=== PATIENT | female | born 1945 | race Caucasian/White ===

== ENCOUNTER 2018-09-16 12:29 | Emergency (ER) | payer OTHER ==
[2018-09-16] MEDS ORDERED: hydrOXYzine HCl 25 MG TAB ONE (13:25)
--- NOTE | 2018-09-16 13:40 | ER ---
Nurse's Notes [facility] Name: Eleanor Osman Age: 73 yrs Sex: Female : 1945 Arrival Date: 09/16/2018 Time: 12:32 Bed 26 Private MD: Diagnosis: Allergic contact dermatitis;Allergic contact dermatitis due to plants, except food Presentation: 09/16 12:37 Presenting complaint: Patient states: Was clearing a fence line a few days ago, wore sg gloves but no long sleeves, reports having a red itchy rash to head face, arms and hands, similar to what happens when she is exposed to poison [place]. Transition of care: patient was not received from another setting of care. Onset of symptoms was September 16, 2018. Risk Assessment: Do you want to hurt yourself or someone else? Patient reports no desire to harm self or others. Initial Sepsis Screen: Does the patient meet any 2 criteria? No. Patient's initial sepsis screen is negative. Does the patient have a suspected source of infection? No. Patient's initial sepsis screen is negative. Care prior to arrival: None. 12:37 Method Of Arrival: Ambulatory sg 12:37 Acuity: BRANDON 4 sg Triage Assessment: 13:45 General: Appears in no apparent distress. Behavior is calm, cooperative. iw Historical: - Allergies: 12:37 Aspirin; sg - PMHx: 12:37 Asthma; sg - PSHx: 12:37 Tonsillectomy; Tubal ligation; Cholecystectomy; sg - Immunization history:: Adult Immunizations up to date. - Social history:: Smoking status: Patient/guardian denies using tobacco. - Ebola Screening: : Patient negative for fever greater than or equal to 101.5 degrees Fahrenheit, and additional compatible Ebola Virus Disease symptoms Patient denies exposure to infectious person Patient denies travel to an Ebola-affected area in the 21 days before illness onset No symptoms or risks identified at this time. Screenin:10 Nutritional screening: No deficits noted. Tuberculosis screening: No symptoms or risk iw factors identified. Fall Risk None identified. 13:18 Abuse screen: Denies threats or abuse. Denies injuries from another. iw Assessment: 13:10 General: Appears in no apparent distress. comfortable, Behavior is calm, cooperative. iw Pain: Denies pain. Neuro: Level of Consciousness is awake, alert, obeys commands, Oriented to person, place, time, situation, Moves all extremities. Cardiovascular: Patient's skin is warm and dry. Respiratory: Respiratory effort is even, unlabored, Respiratory pattern is regular. GI: Abdomen is flat. Derm: Rash noted that is macular, itchy, on right arm. Musculoskeletal: Range of motion: intact in all extremities. Vital Signs: 12:35 Pulse 88; Resp 17; Temp 98.3; Pulse Ox 96% on R/A; Pain 8/10; sg 12:38 BP 257 / 107; sg 13:18 BP 196 / 100; Pulse 74; Resp 16; Pulse Ox 97% on R/A; iw ED Course: 12:32 Patient arrived in ED. as 12:35 Arm band placed on. sg 12:36 Raymond Hood PA is PHCP. [facility] 12:36 David Palma MD is Attending Physician. [facility] 12:42 Triage completed. sg 13:06 Melany Kenney, RN is Primary Nurse. iw 13:10 Patient has correct armband on for positive identification. iw 13:45 No provider procedures requiring assistance completed. Patient did not have IV access iw during this emergency room visit. Administered Medications: 13:17 Drug: Atarax 25 mg Route: PO; iw Outcome: 13:40 Discharge ordered by MD. [facility] 13:45 Discharged to home ambulatory, with family. iw 13:45 Condition: good 13:45 Discharge instructions given to patient, family, Instructed on discharge instructions, follow up and referral plans. medication usage, Demonstrated understanding of instructions, follow-up care, medications, Prescriptions given X 2. 13:46 Patient left the ED. iw Signatures: Mathew James, RN AVA Raymond Hood PA PA jmm Martinez, Amelia as Melany Kenney, AVA ESCALANTE iw Corrections: (The following items were deleted from the chart) 13:20 13:18 BP 194 / 105; iw iw
--- NOTE | 2018-09-16 13:41 | EDPHYS ---
Physician Documentation [facility] Name: Eleanor Osman Age: 73 yrs Sex: Female : 1945 Arrival Date: 09/16/2018 Time: 12:32 Bed 26 Private MD: ED Physician David Palma HPI: 09/16 12:58 This 73 yrs old Female presents to ER via Ambulatory with complaints of Rash jmm - Poison [place]. 12:58 The patient's rash thought to be caused by Dermatitis. Onset: The symptoms/episode jmm began/occurred gradually, 2 week(s) ago. Associated signs and symptoms: Pertinent positives: burning sensation, itching, Pertinent negatives: fever, Pain swelling of lips, swelling of throat, swelling of tongue, vomiting. Historical: - Allergies: 12:37 Aspirin; sg - PMHx: 12:37 Asthma; sg - PSHx: 12:37 Tonsillectomy; Tubal ligation; Cholecystectomy; sg - Immunization history:: Adult Immunizations up to date. - Social history:: Smoking status: Patient/guardian denies using tobacco. - Ebola Screening: : Patient negative for fever greater than or equal to 101.5 degrees Fahrenheit, and additional compatible Ebola Virus Disease symptoms Patient denies exposure to infectious person Patient denies travel to an Ebola-affected area in the 21 days before illness onset No symptoms or risks identified at this time. ROS: 13:37 Constitutional: Negative for fever, chills, and weight loss, Cardiovascular: Negative jmm for chest pain, palpitations, and edema, Respiratory: Negative for shortness of breath, cough, wheezing, and pleuritic chest pain. 13:37 Skin: Positive for rash. 13:37 All other systems are negative. Exam: 13:37 Head/Face: atraumatic. Eyes: EOMI, no conjunctival erythema appreciated Neck: jmm Trachea midline, Supple Chest/axilla: Normal chest wall appearance and motion. Cardiovascular: Regular rate and rhythm. No edema appreciated Respiratory: Normal respirations, no respiratory distress appreciated Abdomen/GI: Non distended, soft Back: Normal ROM 13:37 Neuro: Awake and alert, normal gait Psych: Behavior is normal, Mood is normal, Patient is cooperative and pleasant 13:37 Constitutional: The patient appears in no acute distress, alert, awake. 13:37 Skin: rash consistent with dermatitis to the right arm, forehead. Vital Signs: 12:35 Pulse 88; Resp 17; Temp 98.3; Pulse Ox 96% on R/A; Pain 8/10; sg 12:38 BP 257 / 107; sg 13:18 BP 196 / 100; Pulse 74; Resp 16; Pulse Ox 97% on R/A; MDM: 12:58 Patient medically screened. [facility] 13:37 Data reviewed: vital signs, nurses notes. Counseling: I had a detailed discussion with aurelia the patient and/or guardian regarding: the historical points, exam findings, and any diagnostic results supporting the discharge/admit diagnosis, the need for outpatient follow up, to return to the emergency department if symptoms worsen or persist or if there are any questions or concerns that arise at home. ED course: I discussed with the patient the need for reevaluation to begin treatment for hypertension. Patient was otherwise given return precautions. Patient understood and agrees with the plan of care. . 09/16 13:01 Order name: Vital Signs; Complete Time: 13:20 [facility] Administered Medications: 13:17 Drug: Atarax 25 mg Route: PO; Disposition: 18:11 Co-signature as Attending Physician, David Palma MD. rn Disposition: 09/16/18 13:40 Discharged to Home. Impression: Allergic contact dermatitis, Allergic contact dermatitis due to plants, except food. - Condition is Stable. - Discharge Instructions: Hypertension, Poison [place] Dermatitis. - Prescriptions for Prednisone 20 mg Oral Tablet - take 3 tablet by ORAL route once daily 12 days Please take 3 tabs by mouth for 3 days, then 2 tabs by mouth for 3 days, then 1 tab by mouth daily for 3 days, then 1/2 tab by mouth daily for 3 days.; 20 tablet. Hydroxyzine HCl 25 mg Oral Tablet - take 1 tablet by ORAL route every 6 hours As needed; 30 tablet. - Medication Reconciliation Form, Thank You Letter, Antibiotic Education, Prescription Opioid Use form. - Follow up: Private Physician; When: 2 - 3 days; Reason: Recheck today's complaints, Continuance of care, Re-evaluation by your physician. Signatures: Mathew James RN RN Raymond Hood PA PA Melany Woody RN RN David Palma MD MD english language learner tutor: (The following items were deleted from the chart) 13:46 13:40 09/16/2018 13:40 Discharged to Home. Impression: Allergic contact dermatitis; iw Allergic contact dermatitis due to plants, except food. Condition is Stable. Forms are Medication Reconciliation Form, Thank You Letter, Antibiotic Education, Prescription Opioid Use. Follow up: Private Physician; When: 2 - 3 days; Reason: Recheck today's complaints, Continuance of care, Re-evaluation by your physician. [email or web address]
== END 2018-09-16 13:46 | disposition home or self-care (01) ==
LOC: ER 12:29
DX: L23.7 Allergic contact dermatitis due to plants, except food (principal); Z88.6 Allergy status to analgesic agent
CPT/HCPCS: 99283

== ENCOUNTER 2022-03-09 07:36 | Emergency (ER) | payer OTHER ==
--- OUTSIDE RECORDS SUMMARY | 2022-03-09 07:38 | XMS REPORT | Continuity of Care Document ---
:1945 Author Organization [facility] t Address [facility]3 [address] [place] [address] Care Team Providers Name Role Phone CLINTON DUMONT Attending Clinician Unavailable LISBETH CANELA Attending Clinician Unavailable Clinton Dumont MD Attending Clinician Vaccine, [facility] Attending Clinician Unavailable Ana Belcher MD Attending Clinician ANA BELCHER Attending Clinician Unavailable Doctor Unassigned, [place] Attending Clinician Unavailable Cbc, Medicare Wellness Andre Attending Clinician Unavailable Payers Payer Name Policy Type Policy Number Effective Date Expiration Date Annie olmstead MEDICARE PART A [id number] 2011 \T\ B 00:00:00 Problems Condition Condition Condition Status Onset Resolution Last Treating Co mments Source Name Details Category Date Date Treatment Clinician Date No known No known Disease Unive rs active active ity of problems problems [facility] Allergies, Adverse Reactions, Alerts Allergy Allergy Status Severity Reaction(s) Onset Inactive Treating Comm ents Source Name Type Date Date Clinician ASPIRIN DRUG Active Hives Univers INGREDI 6-02 ity of 00:00: [address] [place] [address] Aspirin Propensi Active Hives Univers ty to 6-02 ity of adverse 00:00: [place] reaction [address] [place] [address] NO KNOWN Drug Active Univers ALLERGIE Class ity of S [facility] Social History Social Habit Start Date Stop Date Quantity Comments Source History of tobacco Cigarette Smoker University of use [facility] Exposure to Not sure University of SARS-CoV-2 (event) [facility] Tobacco use and 2021-01-27 2021-01-27 Never used Universit y of exposure 00:00:00 00:00:00 [facility] Alcohol intake 2021-01-27 2021-01-27 Ex-drinker University 00:00:00 00:00:00 (finding) [facility] Cigarettes smoked 2021-01-27 2021-01-27 Univers ity of current (pack per 00:00:00 00:00:00 [place] ) - Reported Branch Cigarette 2021-01-27 2021-01-27 University of pack-years 00:00:00 00:00:00 [facility] Sex Ass[birth year] Universit y of 00:00:00 00:00:00 [facility] Smoking Status Start Date Stop Date Source Current every day smoker 2021-01-27 00:00:00 Uni versity [facility] [place] [facility] Medications Ordered Filled Start Stop Current Ordering Indication Dosage Frequency Signature Comments Components Source Medication Medication Date Date Medication? Clinician (SIG) Name Name amLODIPine Yes [id number] 10mg Take 1 U nivers 10 mg 7-28 tablet by ity of tablet 00:00: mouth [place] 00 daily. Medical Branch hydroCHLORO Yes [id number] 12.5mg Take 1 Univers thiazide 7-28 capsule by ity o f 12.5 mg 00:00: mouth [place] capsule 00 daily. Medical Branch amLODIPine Yes [id number] 10mg Take 1 U nivers 10 mg 7-28 tablet by ity of tablet 00:00: mouth [place] 00 daily. Medical Branch hydroCHLORO Yes [id number] 12.5mg Take 1 Univers thiazide 7-28 capsule by ity o f 12.5 mg 00:00: mouth [place] capsule 00 daily. Medical Branch amLODIPine Yes [id number] 10mg Take 1 U nivers 10 mg 6-30 tablet by ity of tablet 00:00: mouth [place] 00 daily. Medical Branch escitalopra Yes [id number] 10mg Take 1 Univers m oxalate 6-30 tablet by ity o f 10 mg 00:00: mouth [place] tablet 00 daily. Medical Branch ramelteon 8 Yes [id number] 8mg Take 1 Univers mg tablet 6-30 tablet by ity o f 00:00: mouth at [place] 00 bedtime. Medical Branch amLODIPine Yes [id number] 10mg Take 1 U nivers 10 mg 6-30 tablet by ity of tablet 00:00: mouth [place] 00 daily. Medical Branch escitalopra Yes [id number] 10mg Take 1 Univers m oxalate 6-30 tablet by ity o f 10 mg 00:00: mouth [place] tablet 00 daily. Medical Branch ramelteon 8 Yes [id number] 8mg Take 1 Univers mg tablet 6-30 tablet by ity o f 00:00: mouth at [place] 00 bedtime. Medical Branch amLODIPine Yes [id number] 10mg Take 1 U nivers 10 mg 6-30 tablet by ity of tablet 00:00: mouth [place] 00 daily. Medical Branch escitalopra Yes [id number] 10mg Take 1 Univers m oxalate 6-30 tablet by ity o f 10 mg 00:00: mouth [place] tablet 00 daily. Medical Branch ramelteon 8 Yes [id number] 8mg Take 1 Univers mg tablet 6-30 tablet by ity o f 00:00: mouth at [place] 00 bedtime. Medical Branch amLODIPine Yes [id number] 10mg Take 1 U nivers 10 mg 6-30 tablet by ity of tablet 00:00: mouth [place] 00 daily. Medical Branch escitalopra Yes [id number] 10mg Take 1 Univers m oxalate 6-30 tablet by ity o f 10 mg 00:00: mouth [place] tablet 00 daily. Medical Branch ramelteon 8 Yes [id number] 8mg Take 1 Univers mg tablet 6-30 tablet by ity o f 00:00: mouth at [place] 00 bedtime. Medical Branch amLODIPine Yes [id number] 10mg Take 1 U nivers 10 mg 6-30 tablet by ity of tablet 00:00: mouth [place] 00 daily. Medical Branch escitalopra Yes [id number] 10mg Take 1 Univers m oxalate 6-30 tablet by ity o f 10 mg 00:00: mouth [place] tablet 00 daily. Medical Branch ramelteon 8 Yes [id number] 8mg Take 1 Univers mg tablet 6-30 tablet by ity o f 00:00: mouth at [place] 00 bedtime. Medical Branch amLODIPine Yes [id number] 10mg Take 1 U nivers 10 mg 6-30 tablet by ity of tablet 00:00: mouth [place] 00 daily. Medical Branch escitalopra Yes [id number] 10mg Take 1 Univers m oxalate 6-30 tablet by ity o f 10 mg 00:00: mouth [place] tablet 00 daily. Medical Branch ramelteon 8 Yes [id number] 8mg Take 1 Univers mg tablet 6-30 tablet by ity o f 00:00: mouth at [place] 00 bedtime. Medical Branch amLODIPine Yes [id number] 10mg Take 1 U nivers 10 mg 6-30 tablet by ity of tablet 00:00: mouth [place] 00 daily. Medical Branch escitalopra Yes [id number] 10mg Take 1 Univers m oxalate 6-30 tablet by ity o f 10 mg 00:00: mouth [place] tablet 00 daily. Medical Branch ramelteon 8 Yes [id number] 8mg Take 1 Univers mg tablet 6-30 tablet by ity o f 00:00: mouth at [place] 00 bedtime. Medical Branch amLODIPine 2020- No [id number] 10mg Take 1 Univers 10 mg 6-30 07-28 tablet by ity of tablet 00:00: 00:00 mouth [place] 00 :00 daily. Medical Branch escitalopra 2020- No [id number] 10mg Take 1 Univers m oxalate 6-30 07-28 tablet by ity of 10 mg 00:00: 00:00 mouth [place] tablet 00 :00 daily. Medical Branch ramelteon 8 2020- No [id number] 8mg Take 1 Univers mg tablet 6-30 07-28 tablet by ity of 00:00: 00:00 mouth at [place] 00 :00 bedtime. Medical Branch amLODIPine 2020- No [id number] 10mg Take 1 Univers 10 mg 6-30 07-28 tablet by ity of tablet 00:00: 00:00 mouth [place] 00 :00 daily. Medical Branch escitalopra 2020- No [id number] 10mg Take 1 Univers m oxalate 6-30 07-28 tablet by ity of 10 mg 00:00: 00:00 mouth [place] tablet 00 :00 daily. Medical Branch ramelteon 8 2020- No [id number] 8mg Take 1 Univers mg tablet 6-30 07-28 tablet by ity of 00:00: 00:00 mouth at [place] 00 :00 bedtime. Medical Branch amLODIPine 2020-0 Yes [id number] 5mg Take 1 U nivers 5 mg tablet 6- tablet by ity of 00:00: mouth [place] 00 daily. Medical Branch amLODIPine 2020-0 Yes [id number] 5mg Take 1 U nivers 5 mg tablet 6- tablet by ity of 00:00: mouth [place] 00 daily. [facility] Branch amLODIPine 2020-0 Yes [id number] 5mg Take 1 U nivers 5 mg tablet 6- tablet by ity of 00:00: mouth [place] 00 daily. [facility] Branch amLODIPine 2020-0 1- No [id number] 5mg Take 1 Univers 5 mg tablet 12-0230 tablet by it y of 00:00: 00:00 mouth [place] 00 :00 daily. [facility] Branch amLODIPine 2020-0 2020- No [id number] 5mg Take 1 Univers 5 mg tablet 12-02 tablet by it y of 00:00: 00:00 mouth [place] 00 :00 daily. [facility] No known No Univers medications ity [facility] [place] [facility] No known No Univers medications [facility] [place] [facility] Immunizations Ordered Filled Immunization Date Status Comments [facility] e Immunization Name Name SARS-COV-2 COVID-19 2021-01-27 Completed Unive rsity of PFIZER VACCINE 00:00:00 [facility] SARS-COV-2 COVID-19 2021-01-27 Completed Unive rsity of PFIZER VACCINE 00:00:00 [facility] SARS-COV-2 COVID-19 2021-01-07 Completed Unive rsity of PFIZER VACCINE 00:00:00 [facility] SARS-COV-2 COVID-19 2021-01-07 Completed Unive rsity of PFIZER VACCINE 00:00:00 [facility] SARS-COV-2 COVID-19 2021-01-07 Completed Unive rsity of PFIZER VACCINE 00:00:00 [facility] SARS-COV-2 COVID-19 2021-01-07 Completed Unive rsity of PFIZER VACCINE 00:00:00 [facility] SARS-COV-2 COVID-19 2021-01-07 Completed Unive rsity of PFIZER VACCINE 00:00:00 [facility] SARS-COV-2 COVID-19 2021-01-07 Completed Unive rsity of PFIZER VACCINE 00:00:00 [facility] SARS-COV-2 COVID-19 2021-01-07 Completed Unive rsity of PFIZER VACCINE 00:00:00 [facility] SARS-COV-2 COVID-19 2021-01-07 Completed Unive rsity of PFIZER VACCINE 00:00:00 [facility] Vital Signs Vital Name Observation Time Observation Value Comments Source Systolic blood 2021-01-27 19:15:00 170 mm[Hg] Univer sity of pressure [facility] Diastolic blood 2021-01-27 19:15:00 83 mm[Hg] Unive rsity of pressure [facility] Heart rate 2021-01-27 19:15:00 76 /min Universi ty of [facility] Body temperature 2021-01-27 19:11:00 37.17 Adilia Univ ersity of [facility] Respiratory rate 2021-01-27 19:11:00 18 /min Univ ersity of [facility] Body height 2021-01-27 19:11:00 157.5 cm Universi ty of [facility] Body weight 2021-01-27 19:11:00 62.596 kg Universi ty of [facility] BMI 2021-01-27 19:11:00 25.24 kg/m2 Universi ty of [facility] Oxygen saturation in 2021-01-27 19:11:00 94 /min University of Arterial blood by [facility] [place] [facility] Pulse oximetry Branch Body weight 2021-01-26 18:14:00 63.957 kg Universi ty of [facility] BMI 2021-01-26 18:14:00 25.79 kg/m2 Universi ty of [facility] Systolic blood 2020-12-30 20:33:00 179 mm[Hg] Univer sity of pressure [facility] Diastolic blood 2020-12-30 20:33:00 88 mm[Hg] Unive rsity of pressure [facility] Heart rate 2020-12-30 20:32:00 83 /min Universi ty of [facility] Body height 2020-12-30 20:32:00 157.5 cm Universi ty of [facility] Body weight 2020-12-30 20:32:00 63.957 kg Universi ty of [facility] BMI 2020-12-30 20:32:00 25.79 kg/m2 Universi ty of [place] [facility] Systolic blood 2020-12-30 19:20:00 179 mm[Hg] Univer sity of pressure [place] [facility] Diastolic blood 2020-12-30 19:20:00 88 mm[Hg] Unive rsity of pressure [place] [facility] Heart rate 2020-12-30 19:12:00 83 /min Universi ty of [place] [facility] Respiratory rate 2020-12-30 19:12:00 16 /min Univ ersity of [place] [facility] Body height 2020-12-30 19:12:00 157.5 cm Universi ty of [place] [facility] Body weight 2020-12-30 19:12:00 63.957 kg Universi ty of [place] [facility] BMI 2020-12-30 19:12:00 25.79 kg/m2 Universi ty of [place] [facility] Oxygen saturation in 2020-12-30 19:12:00 96 /min University of Arterial blood by [facility] [place] [facility] Pulse oximetry Branch Systolic blood 2020-12-02 20:11:00 185 mm[Hg] Univer sity of pressure [place] [facility] Diastolic blood 2020-12-02 20:11:00 89 mm[Hg] Unive rsity of pressure [place] [facility] Heart rate 2020-12-02 19:19:00 82 /min Universi ty of [place] [facility] Respiratory rate 2020-12-02 19:19:00 16 /min Univ ersity of [place] [facility] Body height 2020-12-02 19:19:00 156.2 cm Universi ty of [place] [facility] Body weight 2020-12-02 19:19:00 64.411 kg Universi ty of [place] [facility] BMI 2020-12-02 19:19:00 26.40 kg/m2 Universi ty of [place] [facility] Oxygen saturation in 2020-12-02 19:19:00 96 /min University of Arterial blood by [facility] [place] [facility] Pulse oximetry Branch Procedures Procedure Date / Time Performing Clinician Source Performed SARS-COV-2 COVID-19 2021-01-27 22:03:36 Clinton Dumont Unive [facility] VACCINE,0.3ML, Medical Branch (PFIZER) OPHTHALMOLOGY DIAGNOSTIC 2021-01-26 05:01:00 Doctor Unassigned, No [facility] TEST Name [facility] SARS-COV-2 COVID-19 2021-01-07 22:03:21 Doctor Unassigned, No Un [facility] [place] VACCINE,0.3ML,IM Name [facility] (PFIZER) Encounters Start End Encounter Admission Attending Care Care Encounter Source Date/Time Date/Time Type Type Clinicians Facility Department ID 2022-01-05 2022-01-05 Outpatient [facility] [id number] Univers 13:00:00 13:00:00 [id number] [facility] [place] [facility] 2021-07-30 2021-07-30 Outpatient R JULIA [facility] [id number] Univers 14:20:00 14:20:00 CLINTON [id number] [facility] [place] [facility] 2021-02-15 2021-02-15 Outpatient Helene CANELA [facility] [id number] Univers 14:40:00 14:40:00 LISBETH [id number] nilesh o [facility] 2021-02-15 2021-02-15 Outpatient Helene CANELA [facility] [id number] Univers 14:40:00 14:40:00 LISBETH galloway o [facility] 2021-01-27 2021-01-27 Office Julia [facility] [id number] Univers 13:49:54 15:02:25 Visit [facility] [id number] [facility] [id number] [facility] [id number] [facility] & [facility] Branch Specialty Care 2021-01-27 2021-01-27 Outpatient Helene DUMONT [facility] [id number] Univers 14:20:00 14:20:00 CLINTON [id number] [facility] [place] [facility] 2021-01-27 2021-01-27 Outpatient Helene DUMONT [facility] [id number] Univers 14:20:00 [facility]20[facility] 2021-01-27 Imm/Inj Vaccine, [facility] 1.2.840.114 [id number] Univers 13:51:49 14:01:49 Visit Clinton Dumont [employer] [id number] [facility]y of [place] [id number] [facility] [id number] [facility] Primary & 365 Branch Specialty Care 2021-01-26 2021-01-26 Office Simi [facility] [id number] Univers 12:55:35 14:43:36 Visit Ana [employer] [id number] it y of E[place] 4.2.7.2.686 [facility] [id number] [facility] 136 Branch 2021-01-26 2021-01-26 Outpatient R ANA BELCHER [facility] [id number] Univers 13:30:00 13:30:00 ANA BELCHER [id number] ity [facility] [place] [facility] 2021-01-26 2021-01-26 Outpatient R ANA BELCHER [facility] [id number] Univers 13:30:00 13:30:00 ANA BELCHER ity [facility] [place] [facility] 2021-01-26 2021-01-26 Orders Doctor SLAVA [id number] Univers 00:00:00 00:00:00 Only Unassigned, JIMMY [id number] ity of [place] [facility] 4.2.7.2.686 [facility] [id number] [facility] 009 Branch 2021-01-07 2021-01-07 Imm/Inj Vaccine, [facility] 1.2.840.114 [id number] Univers 14:23:08 14:33:08 Visit [employer]an [employer] [id number] ity of [place] [id number] [place] [address] [id number] [facility] & 365 Branch Specialty Care 2020-12-30 2020-12-30 Nurse Cbc, Medicare Wellness [facility] 1.2.840.114 [id number] Univers 14:27:02 14:57:02 Visit Ketan [employer] [id number] ity of [place] [id number] [place] [address] [id number] [facility] & 231 Branch Specialty Care 2020-12-30 2020-12-30 Office Julia [facility] [id number] Univers 14:02:32 14:22:32 Visit [facility] [id number] it y of [place] 4.2.7.2.686 [facility] [id number] [facility] & 365 Branch Specialty Care 2020-12-30 2020-12-30 Outpatient R JULIA [facility] [id number] Univers 14:20:00 14:20:00 CLINTON [id number] ity [facility] [place] [facility] 2020-12-30 2020-12-30 Outpatient R JULIA [facility] [id number] Univers 14:20:00 14:20:00 CLINTON [facility] [place] [facility] 2020-12-30 2020-12-30 Outpatient R [facility] [id number] Univers 14:00:00 [facility]00[facility] 2020-12-08 2020-12-08 Outpatient R ANA BELCHER [facility] [id number] Univers 13:30:00 13:30:00 ANA BELCHER [id number] [facility] [place] [facility] 2020-12-08 2020-12-08 Outpatient R ANA BELCHER [facility] [id number] Univers 13:30:00 13:30:00 ANA BELCHER [facility] [place] [facility] 2020-12-07 2020-12-07 Outpatient R HILTON [facility] [id number] Univers 14:00:00 14:00:00 LISBETH [id number] nilesh o [facility] 2020-12-07 2020-12-07 Outpatient R HILTON [facility] [id number] Univers 14:00:00 14:00:00 LISBETH galloway o f [facility] 2020-12-04 2020-12-04 Telephone Julia [facility] [id number] Univers 00:00:00 00:00:00 [facility] [id number] it y of [place] [id number] [facility] [id number] [facility] Primary & 231 Branch Specialty Care 2020-12-02 2020-12-02 Outpatient R [facility] [id number] Univers 15:30:00 15:30:00 [id number] [facility] [place] [facility] 2020-12-02 2020-12-02 Office Julia [facility] [id number] Univers 14:00:47 15:21:02 Visit [facility] [id number] [facility] [id number] [facility] [id number] [facility] & 365 Branch Specialty Care 2020-12-02 2020-12-02 Outpatient R JULIA [facility] [id number] [facility] 14:20:00 14:20:00 [facility] Results This patient has no known results.
--- NOTE | 2022-03-09 08:10 | ER ---
Nurse's Notes [facility] Name: Eleanor Osman Age: 77 yrs Sex: Female : 1945 Arrival Date: 03/09/2022 Time: 07:38 Bed Waiting Private MD: Diagnosis: Epistaxis;Tobacco use;Elevated blood-pressure reading, without diagnosis of hypertension Presentation: 03/09 08:02 Chief complaint: Patient states: nose bleed started this morning , stopped bleeding iw while in the lobby. Risk Assessment: Do you want to hurt yourself or someone else? Patient reports no desire to harm self or others. Onset of symptoms was March 09, 2022. 08:02 Acuity: BRANDON 4 iw 08:02 Method Of Arrival: Ambulatory iw 08:05 Coronavirus screen: At this time, the client does not indicate any symptoms associated iw with coronavirus-19. Ebola Screen: Patient negative for fever greater than or equal to 101.5 degrees Fahrenheit, and additional compatible Ebola Virus Disease symptoms Patient denies exposure to infectious person. Patient denies travel to an Ebola-affected area in the 21 days before illness onset. No symptoms or risks identified at this time. Initial Sepsis Screen: Does the patient meet any 2 criteria? No. Patient's initial sepsis screen is negative. Does the patient have a suspected source of infection? No. Patient's initial sepsis screen is negative. Triage Assessment: 08:10 General: Appears in no apparent distress. iw 08:10 General: Behavior is calm. iw 08:10 Pain: Denies pain. iw Historical: - Allergies: 08:04 Aspirin; iw - PMHx: 08:04 Asthma; iw - Immunization history:: Adult Immunizations up to date, Client reports receiving the 2nd dose of the Covid vaccine, Client reports receiving the 1st dose of the Covid vaccine. - Social history:: Smoking status: Patient denies any tobacco usage or history of. Screenin:20 Abuse screen: Denies threats or abuse. Nutritional screening: No deficits noted. iw Tuberculosis screening: No symptoms or risk factors identified. Fall Risk None identified. Assessment: 08:20 Reassessment: No changes from previously documented assessment. iw Vital Signs: 08:04 BP 202 / 94; Pulse 85; Resp 16; Temp 99.0; Pulse Ox 95% on R/A; iw ED Course: 07:38 Patient arrived in ED. am2 07:56 Mark Dickson DO is Attending Physician. ms3 08:04 Triage completed. iw 08:04 Arm band placed on. iw 08:08 Chuck Prakash DO is Referral Physician. ms3 08:13 Melany Kenney, RN is Primary Nurse. iw 08:19 No provider procedures requiring assistance completed. Patient did not have IV access iw during this emergency room visit. 08:20 Patient has correct armband on for positive identification. iw Administered Medications: No medications were administered Medication: 08:20 VIS not applicable for this client. iw Outcome: 08:09 Discharge ordered by MD. ms3 08:20 Discharged to home ambulatory. iw 08:20 Condition: improved 08:20 Discharge instructions given to patient, Instructed on discharge instructions, follow up and referral plans. Demonstrated understanding of instructions, follow-up care. 08:21 Patient left the ED. iw Signatures: Melany Kenney, RN RN iw Maria Del Rosario Campos am2 Mark Dickson DO DO ms3
--- NOTE | 2022-03-09 08:10 | EDPHYS ---
Physician Documentation [facility] Name: Eleanor Osman Age: 77 yrs Sex: Female : 1945 Arrival Date: 03/09/2022 Time: 07:38 Bed Waiting Private MD: ED Physician Mark Dickson HPI: 03/09 08:29 This 77 yrs old Female presents to ER via Ambulatory with complaints of Nose Bleed. ms3 08:29 77-year-old female with past medical history of asthma presents for epistaxis that ms3 began at 6 AM. Patient denies pain. Patient states epistaxis has resolved at this time. Patient denies taking blood thinners. Patient denies alleviating or inciting factors.. Historical: - Allergies: 08:04 Aspirin; iw - PMHx: 08:04 Asthma; iw - Immunization history:: Adult Immunizations up to date, Client reports receiving the 2nd dose of the Covid vaccine, Client reports receiving the 1st dose of the Covid vaccine. - Social history:: Smoking status: Patient denies any tobacco usage or history of. ROS: 08:29 Constitutional: Negative for fever, and chills. Neck: Negative for injury, pain, and ms3 swelling, Cardiovascular: Negative for chest pain, and palpitations. Respiratory: Negative for shortness of breath, cough, wheezing, and pleuritic chest pain, Abdomen/GI: Negative for abdominal pain, nausea, vomiting, diarrhea, and constipation, Skin: Negative for injury, rash, and discoloration, Psych: Negative for depression, anxiety, suicide ideation, homicidal ideation, and hallucinations. 08:29 All other systems are negative. Exam: 08:29 Constitutional: This is a well developed, well nourished patient who is awake, alert, ms3 and in no acute distress. Head/Face: Normocephalic, atraumatic. Neck: Trachea midline, no cervical lymphadenopathy. Supple, full range of motion without nuchal rigidity, or vertebral point tenderness. No Meningismus. Chest/axilla: Normal chest wall appearance and motion. Nontender with no deformity. Cardiovascular: Regular rate and rhythm with a normal S1 and S2. No gallops, murmurs, or rubs. Normal PMI, no JVD. No pulse deficits. Respiratory: Lungs have equal breath sounds bilaterally, clear to auscultation and percussion. No rales, rhonchi or wheezes noted. No increased work of breathing, no retractions or nasal flaring. Abdomen/GI: Soft, non-tender, with normal bowel sounds. No distension or tympany. No guarding or rebound. No evidence of tenderness throughout. Skin: Warm, dry with normal turgor. Normal color with no rashes, no lesions, and no evidence of cellulitis. MS/ Extremity: Pulses equal, no cyanosis. Neurovascular intact. Full, normal range of motion. Psych: Awake, alert, with orientation to person, place and time. Behavior, mood, and affect are within normal limits. 08:29 ENT: Nose: Nasal mucosa: Dried blood. Vital Signs: 08:04 BP 202 / 94; Pulse 85; Resp 16; Temp 99.0; Pulse Ox 95% on R/A; iw MDM: 08:08 Patient medically screened. ms3 08:29 Differential diagnosis: spontaneous epistaxis, HTN vs Tobacco abuse. Data reviewed: ms3 vital signs, nurses notes, and as a result, I will discharge patient. Data interpreted:. Counseling: I had a detailed discussion with the patient and/or guardian regarding: the historical points, exam findings, and any diagnostic results supporting the discharge/admit diagnosis, the need for outpatient follow up, to return to the emergency department if symptoms worsen or persist or if there are any questions or concerns that arise at home, smoking cessation. Special discussion: I discussed with the patient/guardian in detail that at this point there is no indication for admission to the hospital. It is understood, however, that if the symptoms persist or worsen the patient needs to return immediately for re-evaluation. ED course: Discussed elevated blood pressure with patient. Epistaxis has resolved. Patient to follow-up with Dr. Prakash in 2 to 3 days as discussed. All questions were answered. Return precautions discussed include worsening symptoms, or any other concerns. Administered Medications: No medications were administered Disposition Summary: 03/09/22 08:09 Discharge Ordered Location: Home ms3 Condition: Stable ms3 Diagnosis - Epistaxis ms3 - Tobacco use ms3 - Elevated blood-pressure reading, without diagnosis of hypertension ms3 Followup: ms3 - With: Chuck Prakash DO - When: 2 - 3 days - Reason: Re-evaluation by your physician Discharge Instructions: - Discharge Summary Sheet ms3 - Nosebleed, Adult ms3 - Hypertension, Adult ms3 - Steps to Quit Smoking ms3 - Health Risks of Smoking ms3 - Hypertension, Adult, [id number] ms3 Forms: - Medication Reconciliation Form ms3 - Thank You Letter ms3 - Antibiotic Education ms3 - Prescription Opioid Use ms3 Signatures: Melany Kenney, RN RN iw Mark Dickson, DO ms3
[2022-03-09 08:27] VITALS: BP 202/94; TEMP 99; O2SAT 95
== END 2022-03-09 08:21 | disposition home or self-care (01) ==
LOC: ER 07:36
DX: R04.0 Epistaxis (principal); R03.0 Elevated blood-pressure reading, without diagnosis of hypertension; Z72.0 Tobacco use; Z88.6 Allergy status to analgesic agent
CPT/HCPCS: 99281